=== PATIENT | male | born 1950 | race Caucasian/White ===

== ENCOUNTER 2017-02-14 05:24 | Day surgery (SDC) | payer OTHER, MEDICARE ==
[~2017-02-14] VITALS: Ht 170.2 cm; Wt 105.2 kg
[~2017-02-14 05:24] MED LIST: ASPIR-LOW81 MG PO; ASPIRIN81 M2 PO; ELIQUIS5 MG PO; FLONASE16 G1 BOTH NARES; FUROSEMIDE20 MG PO; K-DUR10 MEQ PO; LISINOPRIL10 MG PO; LISINOPRIL20 MG PO; LO-DOSE ASPIRIN81 M1 PO; LOSARTAN-HCTZ1 EAC1 PO; METFORMIN HCL500 MG PO; METOPROLOL SUC200 MG PO; NITROSTAT0.4 MG SL; PRAVASTATIN SOD40 MG PO; XARELTO20 MG PO
[2017-02-14 06:39] LABS: POINT-OF-CARE METER ID UU14174212
[2017-02-14 06:57] VITALS: BP 118/86
[2017-02-14 09:11] LABS: POINT-OF-CARE METER ID UU13113675
[2017-02-14 09:20] VITALS: BP 123/72
[2017-02-14 10:00] VITALS: BP 119/74
== END 2017-02-14 10:12 | disposition home or self-care (01) ==
LOC: SDC 05:24
PROVIDERS: Otolaryngology
DX: J34.3 Hypertrophy of nasal turbinates (principal); M95.0 Acquired deformity of nose; J34.2 Deviated nasal septum; E11.9 Type 2 diabetes mellitus without complications; I11.0 Hypertensive heart disease with heart failure; I50.9 Heart failure, unspecified; Z87.891 Personal history of nicotine dependence; Z79.82 Long term (current) use of aspirin; Z79.84 Long term (current) use of oral hypoglycemic drugs
CPT/HCPCS: 82948; J0131; J2250; J3010